=== PATIENT | male | born 1960 | race Two or more races ===

== ENCOUNTER 2018-06-11 18:57 | Emergency (ER) | payer MEDICAID ==
[~2018-06-11] VITALS: Ht 172.7 cm; Wt 101.0 kg
[~2018-06-11 18:57] MED LIST: ALLO100T PO; ASPI81TA52 PO; ATOR80TA PO; CARV6.252 PO; CYCL-1 PO; GLIP5TAB13 PO; INSU100I31 SQ; INSU100I8 SQ; LOSA50TA3 PO; PANT-47 PO; TICA90TA PO
[2018-06-11] MEDS ORDERED: LIDOcaine 1% 30ml preserv. free vial IJ ONE (21:10)
[2018-06-11] MEDS ORDERED: TETanus/Pertussis (Acell)/Diphther VAC/PF (Tdap-Adult) 0.5ml syringe IM ONE (21:10)
[2018-06-11] MEDS ORDERED: LIDOcaine 1% (10mg/ml)w/preservative injection 20ml MDV SQ ONE ×2 (21:10)
[2018-06-11 22:01] VITALS: BP 175/96
== END 2018-06-11 22:02 | disposition home or self-care (01) ==
LOC: ER 18:58
DX: S61.412A Laceration without foreign body of left hand, initial encounter (principal); I10 Essential (primary) hypertension; I25.10 Atherosclerotic heart disease of native coronary artery without angina pectoris; E78.00 Pure hypercholesterolemia, unspecified; I25.2 Old myocardial infarction; E11.9 Type 2 diabetes mellitus without complications; M10.9 Gout, unspecified; Z95.1 Presence of aortocoronary bypass graft; Z88.8 Allergy status to other drugs, medicaments and biological substances; Z79.82 Long term (current) use of aspirin; Z79.4 Long term (current) use of insulin; W45.8XXA Other foreign body or object entering through skin, initial encounter; Y93.89 Activity, other specified; Y92.89 Other specified places as the place of occurrence of the external cause; Y99.8 Other external cause status
CPT/HCPCS: 12001; 90471; 90715; 99283; J2001; J3490

== ENCOUNTER 2020-05-02 13:04 | Inpatient (IN) | payer MEDICAID ==
[~2020-05-02] VITALS: Ht 177.8 cm; Wt 96.0 kg
[2020-05-02] MEDS ORDERED: aspirin 81mg tab.chew PO ONE (13:35)
[2020-05-02] MEDS: nitroGLYCERIN 0.4mg SUBLingual tab SL PRN ×2 (13:49→13:59)
[2020-05-02 14:00] LABS: BASOPHILS % (AUTO) 0.6 % (0-1); EOSINOPHILS # (AUTO) 0.2 X10'3 (0-0.9); EOSINOPHILS % (AUTO) 3.3 % (0-6); HEMATOCRIT 42.4 % (42.0-52.0); HEMOGLOBIN 14.2 g/dl (14.0-17.9); LYMPHOCYTES # (AUTO) 1.6 X10'3 (1.1-4.8); LYMPHOCYTES % (AUTO) 25.1 % (21-51); MEAN CORPUSCULAR HEMOGLOBIN 27.9 PG (27.0-31.0); MEAN CORPUSCULAR HGB CONC 33.6 g/dL (33.0-36.5); MEAN CORPUSCULAR VOLUME 83.1 FL (78-98); MEAN PLATELET VOLUME 7.4 FL (7.4-10.4); MONOCYTES # (AUTO) 0.6 X10'3 (0-0.9); MONOCYTES % (AUTO) 9.2 % (2-12); NEUTROPHILS # (AUTO) 3.9 X10'3 (1.8-7.7); NEUTROPHILS % (AUTO) 61.8 % (42-75); PLATELET COUNT 219 X10'3 (140-440); RED CELL DISTRIBUTION WIDTH 14.6 % (11.5-14.5); WHITE BLOOD COUNT 6.4 X10'3 (4.5-11.0)
[2020-05-02 14:19] LABS: ALANINE AMINOTRANSFERASE 36 U/L (12-78); ALBUMIN 3.6 G/DL (3.4-5.0); ALKALINE PHOSPHATASE 93 IU/L (46-116); ANION GAP 8 (8-16); ASPARTATE AMINO TRANSFERASE 12 U/L (10-37); BILIRUBIN,TOTAL 0.8 MG/DL (0.1-1.0); BLOOD UREA NITROGEN 18 MG/DL (7-18); BUN/CREATININE RATIO 14.9 (5.4-32.0); CALCIUM 8.6 MG/DL (8.5-10.1); CHLORIDE 106 MMOL/L (99-107); CREATININE 1.21 MG/DL (0.60-1.10); GLUCOSE 167 MG/DL (70-104); POTASSIUM 4.2 MMOL/L (3.5-5.1); SODIUM 140 MMOL/L (135-145); TOTAL CARBON DIOXIDE 26.1 MMOL/L (24-32); TOTAL PROTEIN 7.3 G/DL (6.4-8.2); eGFR 61 ML/MIN
[2020-05-02] MEDS ORDERED: magnesium hydroxide 30ml (MOM) UD suspension PO PRN (15:25)
[2020-05-02] MEDS ORDERED: morphine 2 MG/ML inj. syringe IV PRN ×2 (15:25)
[2020-05-02] MEDS ORDERED: ondansetron/PF 4mg/2ml inj IV PRN (15:25)
[2020-05-02] MEDS ORDERED: acetaminophen 325mg tablet PO PRN (15:25)
[2020-05-02] MEDS ORDERED: mag hydrox/Alum hydrox/simeth 30ml oral suspension PO PRN (15:25)
[2020-05-02] MEDS ORDERED: nitroGLYCERIN 0.4mg/hour patch TD ONE (15:30)
[2020-05-02] MEDS ORDERED: ATOR40TA72 PO (15:47)
[2020-05-02] MEDS ORDERED: PANT40TA4 PO (15:47)
[2020-05-02] MEDS ORDERED: TICA90TA2 PO (15:47)
[2020-05-02] MEDS ORDERED: SEMA0.25 SQ (15:47)
[2020-05-02] MEDS ORDERED: ASPI-1397 PO (15:47)
[2020-05-02] MEDS ORDERED: NITR0.4T51 SL (15:47)
[2020-05-02] MEDS ORDERED: ZOLP5TAB8 PO (15:47)
[2020-05-02] MEDS ORDERED: CARV6.253 PO (15:47)
[2020-05-02] MEDS ORDERED: ALLO100T49 PO (15:49)
[2020-05-02] MEDS ORDERED: TICA90TA PO (15:49)
[2020-05-02] MEDS: normal saline 1000ml 1,000 ML IV SCH (16:02)
[2020-05-02] MEDS ORDERED: nitroGLYCERIN 0.4mg SUBLingual tab SL PRN (17:10)
--- NOTE | 2020-05-02 18:50 | NUR ---
Patient in room ED 10. I have received report from Kaylee MUKHERJEE and had the opportunity to ask questions and assume patient care.
--- NOTE | 2020-05-02 19:28 | NUR ---
Patient arrived on unit. equipment monitor phototypesetting applied, MRSA swab obtained and two RN skin check completed. Patient stable and has no chest pain at this time. Will continue to monitor closely.
--- NOTE | 2020-05-02 19:54 | NUR ---
DAUGHTER DOM BUSCH [phone]
[2020-05-02] MEDS ORDERED: heparin, porcine 5000 units/ml vial SQ SCH (20:00)
[2020-05-02] MEDS: ticagrelor 90mg tablet PO SCH (20:16)
[2020-05-02] MEDS: carvedilol 6.25mg tablet PO SCH (20:16)
[2020-05-02] MEDS: losartan 50mg tablet PO SCH (20:16)
[2020-05-02] MEDS: insulin glargine (Lantus) pen - multi-dose SQ SCH (20:40)
[2020-05-02 22:00] VITALS: BP 127/79
[2020-05-03] MEDS: normal saline 1000ml 1,000 ML IV SCH ×2 (01:24→11:24)
[2020-05-03 01:44] LABS: ANION GAP 7 (8-16); BLOOD UREA NITROGEN 17 MG/DL (7-18); BUN/CREATININE RATIO 17.3 (5.4-32.0); CALCIUM 8.3 MG/DL (8.5-10.1); CHLORIDE 107 MMOL/L (99-107); CREATININE 0.98 MG/DL (0.60-1.10); GLUCOSE 96 MG/DL (70-104); POTASSIUM 3.5 MMOL/L (3.5-5.1); SODIUM 139 MMOL/L (135-145); TOTAL CARBON DIOXIDE 25.3 MMOL/L (24-32); eGFR 78 ML/MIN
[2020-05-03 01:55] LABS: BASOPHILS % (AUTO) 0.6 % (0-1); EOSINOPHILS # (AUTO) 0.2 X10'3 (0-0.9); EOSINOPHILS % (AUTO) 3.5 % (0-6); HEMATOCRIT 37.3 % (42.0-52.0); HEMOGLOBIN 12.7 g/dl (14.0-17.9); LYMPHOCYTES # (AUTO) 1.9 X10'3 (1.1-4.8); MEAN CORPUSCULAR HEMOGLOBIN 28.5 PG (27.0-31.0); MEAN CORPUSCULAR HGB CONC 34.1 g/dL (33.0-36.5); MEAN CORPUSCULAR VOLUME 83.5 FL (78-98); MEAN PLATELET VOLUME 7.4 FL (7.4-10.4); MONOCYTES # (AUTO) 0.6 X10'3 (0-0.9); MONOCYTES % (AUTO) 8.7 % (2-12); NEUTROPHILS # (AUTO) 4.1 X10'3 (1.8-7.7); NEUTROPHILS % (AUTO) 60.2 % (42-75); PLATELET COUNT 184 X10'3 (140-440); RED BLOOD COUNT 4.46 X10'6 (4.70-6.10); WHITE BLOOD COUNT 6.9 X10'3 (4.5-11.0)
[2020-05-03 02:00] VITALS: BP 128/76
--- NOTE | 2020-05-03 06:03 | NUR ---
Problems reprioritized. Patient report given, questions answered & plan of care reviewed with Sharita MUKHERJEE.
--- NOTE | 2020-05-03 06:21 | NUR ---
Patient in room PCU 3021. I have received report from YAZ Hill and had the opportunity to ask questions and assume patient care. Patient awake in bed and in no acute distress.
[2020-05-03 07:00] VITALS: BP 149/77
[2020-05-03] MEDS: carvedilol 6.25mg tablet PO SCH (07:55)
[2020-05-03 07:58] VITALS: BP_SYST 149
[2020-05-03] MEDS: losartan 50mg tablet PO SCH (07:58)
[2020-05-03] MEDS: ticagrelor 90mg tablet PO SCH (07:58)
[2020-05-03] MEDS ORDERED: aspirin 81mg tablet.DR PO SCH (08:00)
[2020-05-03] MEDS ORDERED: atorvastatin 20mg tablet PO SCH (08:00)
[2020-05-03] MEDS ORDERED: pantoprazole 40mg Tablet.DR PO SCH (08:00)
[2020-05-03] MEDS ORDERED: glipizide 5mg tablet PO SCH (08:00)
[2020-05-03] MEDS: insulin glargine (Lantus) pen - multi-dose SQ SCH (08:05)
[2020-05-03] MEDS ORDERED: isosorbide mononitrate 30mg tab.SR.24H PO ONE (08:25)
[2020-05-03] MEDS ORDERED: allopurinol 100mg tablet PO SCH (08:30)
[2020-05-03] MEDS ORDERED: ISOS30TA6 PO (10:23)
--- NOTE | 2020-05-03 11:50 | NUR ---
Patient stable for discharge per MD orders. All discharge instructions reviewed and questions answered appropriately. Belongings collected and sent with patient. New prescriptions called in to [facility] on [address]. Patient will call for follow up with PCP and with Dr. Garcia. PIV discontinued and cannula intact. awake overnight monitor discontinued. Hospital armband cut off. Patient wheeled down to lobby and left via private vehicle.
[2020-05-04] MEDS ORDERED: isosorbide mononitrate 30mg tab.SR.24H PO SCH (08:00)
[2020-05-05] MEDS ORDERED: SEMAGLUTIDE 0.25 MG/0.2 ML SQ SCH (08:00)
== END 2020-05-03 11:48 | disposition home or self-care (01) | DRG 198 ==
LOC: ER 13:05 → OBSVTOIN 15:24 → ED HOLD 15:24 → PCU 3S 19:11
PROVIDERS: ADMIT Family Medicine; ATTEND Family Medicine
DX: I24.9 Acute ischemic heart disease, unspecified (principal); E11.9 Type 2 diabetes mellitus without complications; E78.00 Pure hypercholesterolemia, unspecified; E78.5 Hyperlipidemia, unspecified; I10 Essential (primary) hypertension; I25.10 Atherosclerotic heart disease of native coronary artery without angina pectoris; I25.2 Old myocardial infarction; Z95.5 Presence of coronary angioplasty implant and graft; M10.9 Gout, unspecified; Z79.899 Other long term (current) drug therapy
CPT/HCPCS: 36415; 71045; 80048; 80053; 82948; 83880; 84484; 85025; 87081; 93005; 93306; 99285; G0378; J1815; J7030

== ENCOUNTER 2020-07-16 11:55 | Emergency (ER) | payer MEDICAID ==
[~2020-07-16] VITALS: Ht 175.3 cm; Wt 94.0 kg
[~2020-07-16 11:55] MED LIST changes: -ALLO100T PO; +ALLO100T49 PO; +ASPI-1397 PO; -ASPI81TA52 PO; +ATOR40TA72 PO; -ATOR80TA PO; -CARV6.252 PO; +CARV6.253 PO; -CYCL-1 PO; -INSU100I8 SQ; +ISOS30TA6 PO; +NITR0.4T51 SL; -PANT-47 PO; +PANT40TA54 PO; +SEMA0.25 SQ; -TICA90TA PO; +TICA90TA2 PO
[2020-07-16] MEDS ORDERED: acetaminophen 325mg tablet PO STA (12:07)
[2020-07-16] MEDS ORDERED: normal saline 1000ML IV soln IV ONE ×2 (12:10→12:35)
[2020-07-16] MEDS ORDERED: aspirin 81mg tab.chew PO ONE (12:10)
[2020-07-16] MEDS ORDERED: dexamethasone sod phosphate 10mg/ml inj IV STA (12:32)
[2020-07-16] MEDS ORDERED: levoFLOXACIN-Levaquin 750MG/D5 150 ML IV ONE (12:35)
[2020-07-16 13:02] LABS: BASOPHILS % (AUTO) 0.2 % (0-1); EOSINOPHILS % (AUTO) 0.2 % (0-6); HEMATOCRIT 41.4 % (42.0-52.0); HEMOGLOBIN 13.9 g/dl (14.0-17.9); LYMPHOCYTES % (AUTO) 13.6 % (21-51); MEAN CORPUSCULAR HEMOGLOBIN 27.5 PG (27.0-31.0); MEAN CORPUSCULAR HGB CONC 33.6 g/dL (33.0-36.5); MEAN CORPUSCULAR VOLUME 81.8 FL (78-98); MONOCYTES # (AUTO) 0.6 X10'3 (0-0.9); MONOCYTES % (AUTO) 8.3 % (2-12); NEUTROPHILS # (AUTO) 5.7 X10'3 (1.8-7.7); NEUTROPHILS % (AUTO) 77.7 % (42-75); PLATELET COUNT 239 X10'3 (140-440); RED BLOOD COUNT 5.07 X10'6 (4.70-6.10); RED CELL DISTRIBUTION WIDTH 13.9 % (11.5-14.5); WHITE BLOOD COUNT 7.3 X10'3 (4.5-11.0)
[2020-07-16 13:14] LABS: D-DIMER 0.35 MG/L FEU (0-0.50)
[2020-07-16 13:18] LABS: ALANINE AMINOTRANSFERASE 41 U/L (12-78); ALBUMIN 3.1 G/DL (3.4-5.0); ALBUMIN/GLOBULIN RATIO 0.6 (1.1-1.5); ALKALINE PHOSPHATASE 110 IU/L (46-116); ANION GAP 12 (8-16); ASPARTATE AMINO TRANSFERASE 20 U/L (10-37); BILIRUBIN,TOTAL 0.7 MG/DL (0.1-1.0); BLOOD UREA NITROGEN 12 MG/DL (7-18); BUN/CREATININE RATIO 11.4 (5.4-32.0); CALCIUM 8.7 MG/DL (8.5-10.1); CHLORIDE 96 MMOL/L (99-107); CREATININE 1.05 MG/DL (0.60-1.10); GLUCOSE 133 MG/DL (70-104); SODIUM 134 MMOL/L (135-145); TOTAL CARBON DIOXIDE 26.2 MMOL/L (24-32); TOTAL PROTEIN 7.9 G/DL (6.4-8.2); eGFR 72 ML/MIN
[2020-07-16 13:59] LABS: CLARITY,URINE CLEAR (Clear); COLOR,URINE YELLOW (Yellow); GLUCOSE, URINE NEGATIVE (Neg); KETONES,URINE NEGATIVE (Neg); LEUKOCYTE ESTERASE ,URINE NEGATIVE (Neg); NITRITES, URINE NEGATIVE (Neg); OCCULT BLOOD,URINE NEGATIVE (Neg); PROTEIN,URINE TRACE mg/dl (Neg)
[2020-07-16 14:05] LABS: UA COLLECTION TYPE VOIDED
[2020-07-16 14:10] LABS: MUCUS STRANDS MANY /LPF (Neg); SQUAMOUS EPITHELIAL CELL,UR MODERATE /LPF (FEW); TRANSITIONAL EPI CELLS,URINE FEW /HPF
[2020-07-16 14:11] LABS: BACTERIA,URINE NONE SEEN /HPF (Neg); RBC,URINE 0-2 /HPF (0-2); RENAL CELLS, URINE MODERATE /HPF; WBC,URINE 0-4 /HPF (0-4)
[2020-07-16] MEDS ORDERED: DEXA4TAB67 PO (14:13)
[2020-07-16] MEDS ORDERED: LEVO750T46 PO (14:13)
[2020-07-16] MEDS ORDERED: ALBU6.7H9 INH (14:13)
--- NOTE | 2020-07-16 14:55 | NUR ---
STARTED IV AND GAVE MEDICATION PER PRIMARY RN REQUEST
--- NOTE | 2020-07-16 15:09 | NUR ---
SPOKE TO ROSA MARIA FERGUSON: PATIENT TO RECEIVE 2 LITERS TOTAL OF NS
--- NOTE | 2020-07-16 15:14 | NUR ---
COVID PRECAUTIONS MAINTAINED
[2020-07-16 16:19] VITALS: BP 138/89
== END 2020-07-16 16:20 | disposition home or self-care (01) ==
LOC: ER 11:56
DX: U07.1 COVID-19 (principal); J12.89 Other viral pneumonia; I25.10 Atherosclerotic heart disease of native coronary artery without angina pectoris; E78.00 Pure hypercholesterolemia, unspecified; I10 Essential (primary) hypertension; I21.9 Acute myocardial infarction, unspecified; E11.9 Type 2 diabetes mellitus without complications; M10.9 Gout, unspecified; Z98.890 Other specified postprocedural states
CPT/HCPCS: 36415; 71045; 80053; 81001; 83605; 83880; 84145; 84484; 85025; 85379; 85610; 87040; 93005; 96365; 96366; 96375; 99285; J1100; J1956; J7030

== ENCOUNTER 2020-07-21 11:10 | Emergency (ER) | payer MEDICAID ==
[~2020-07-21] VITALS: Ht 177.8 cm; Wt 95.5 kg
[~2020-07-21 11:10] MED LIST changes: +ALBU6.7H9 INH; +DEXA4TAB67 PO; +LEVO750T46 PO
[2020-07-21 12:29] LABS: BASOPHILS % (AUTO) 0.4 % (0-1); EOSINOPHILS # (AUTO) 0.1 X10'3 (0-0.9); EOSINOPHILS % (AUTO) 0.8 % (0-6); HEMOGLOBIN 14.3 g/dl (14.0-17.9); LYMPHOCYTES # (AUTO) 0.9 X10'3 (1.1-4.8); MEAN CORPUSCULAR HEMOGLOBIN 27.6 PG (27.0-31.0); MEAN CORPUSCULAR HGB CONC 33.4 g/dL (33.0-36.5); MEAN CORPUSCULAR VOLUME 82.7 FL (78-98); MONOCYTES # (AUTO) 0.9 X10'3 (0-0.9); MONOCYTES % (AUTO) 12.8 % (2-12); NEUTROPHILS # (AUTO) 5.3 X10'3 (1.8-7.7); PLATELET COUNT 391 X10'3 (140-440); WHITE BLOOD COUNT 7.2 X10'3 (4.5-11.0)
[2020-07-21 12:41] LABS: ALANINE AMINOTRANSFERASE 23 U/L (12-78); ALBUMIN 2.8 G/DL (3.4-5.0); ALBUMIN/GLOBULIN RATIO 0.6 (1.1-1.5); ALKALINE PHOSPHATASE 92 IU/L (46-116); ANION GAP 11 (8-16); ASPARTATE AMINO TRANSFERASE 8 U/L (10-37); BILIRUBIN,TOTAL 0.8 MG/DL (0.1-1.0); BLOOD UREA NITROGEN 14 MG/DL (7-18); CALCIUM 8.7 MG/DL (8.5-10.1); CHLORIDE 98 MMOL/L (99-107); CREATININE 1.08 MG/DL (0.60-1.10); GLUCOSE 322 MG/DL (70-104); POTASSIUM 3.7 MMOL/L (3.5-5.1); SODIUM 132 MMOL/L (135-145); TOTAL CARBON DIOXIDE 23.4 MMOL/L (24-32); TOTAL PROTEIN 7.3 G/DL (6.4-8.2); eGFR 70 ML/MIN
[2020-07-21 12:42] LABS: CLARITY,URINE CLEAR (Clear); COLOR,URINE YELLOW (Yellow); GLUCOSE, URINE 500 mg/dl (Neg); KETONES,URINE NEGATIVE (Neg); LEUKOCYTE ESTERASE ,URINE NEGATIVE (Neg); NITRITES, URINE NEGATIVE (Neg); OCCULT BLOOD,URINE NEGATIVE (Neg); PROTEIN,URINE NEGATIVE (Neg)
[2020-07-21 12:46] LABS: UA COLLECTION TYPE URINAL
[2020-07-21 12:50] LABS: ETHANOL < 0.010 GM/DL (0.0-0.010)
[2020-07-21 12:54] LABS: URINE AMPHETAMINE SCREEN NEGATIVE (Neg); URINE BARBITUATE SCREEN NEGATIVE (Neg); URINE BENZODIAZEPINES SCREEN NEGATIVE (Neg); URINE CANNABINOID SCREEN NEGATIVE (Neg); URINE COCAINE SCREEN NEGATIVE (Neg); URINE METHADONE SCREEN NEGATIVE (Neg); URINE OPIATE SCREEN NEGATIVE (Neg); URINE PHENCYCLIDINE SCREEN NEGATIVE (Neg)
[2020-07-21] MEDS ORDERED: acetaminophen 325mg tablet PO ONE (13:55)
--- NOTE | 2020-07-21 15:10 | NUR ---
Phoned patient's family members to have his spouse come to the ED for the mental health evaluation with [facility]. Pt's spouse is heading to work but his daughter is going to come to the ED to assist with the evaluation and translation.
--- NOTE | 2020-07-21 16:09 | NUR ---
[facility] has been in to speak with the patient and is daughter. Pt is pending disposition to home.
[2020-07-21] MEDS ORDERED: ZOLP5TAB8 PO ×2 (16:55→16:58)
[2020-07-21 17:12] VITALS: BP 124/79
== END 2020-07-21 17:15 | disposition home or self-care (01) ==
LOC: ER 11:10
DX: F32.9 Major depressive disorder, single episode, unspecified (principal); F41.9 Anxiety disorder, unspecified; G47.00 Insomnia, unspecified; R45.851 Suicidal ideations; I25.10 Atherosclerotic heart disease of native coronary artery without angina pectoris; E78.00 Pure hypercholesterolemia, unspecified; I10 Essential (primary) hypertension; I25.2 Old myocardial infarction; E11.9 Type 2 diabetes mellitus without complications; Z98.61 Coronary angioplasty status; Z88.8 Allergy status to other drugs, medicaments and biological substances; Z79.82 Long term (current) use of aspirin; Z79.4 Long term (current) use of insulin; Z79.899 Other long term (current) drug therapy
CPT/HCPCS: 36415; 80053; 80305; 80320; 81003; 84443; 85025; 99283; 99284

== ENCOUNTER 2022-10-14 22:11 | Emergency (ER) | payer MEDICAID ==
[~2022-10-14] VITALS: Ht 175.3 cm; Wt 104.5 kg
[~2022-10-14 22:11] MED LIST changes: +ALBU6.7H14 INH; -ALBU6.7H9 INH; -ISOS30TA6 PO; +ISOS30TA84 PO; -LEVO750T46 PO
[2022-10-14 22:38] LABS: BASOPHILS # (AUTO) 0.1 X10'3 (0-0.2); BASOPHILS % (AUTO) 1.2 % (0-1); EOSINOPHILS # (AUTO) 0.2 X10'3 (0-0.9); EOSINOPHILS % (AUTO) 2.7 % (0-6); HEMATOCRIT 42.2 % (42.0-52.0); HEMOGLOBIN 14.6 g/dl (14.0-17.9); LYMPHOCYTES # (AUTO) 2.7 X10'3 (1.1-4.8); LYMPHOCYTES % (AUTO) 32.3 % (21-51); MEAN CORPUSCULAR HEMOGLOBIN 27.6 PG (27.0-31.0); MEAN CORPUSCULAR HGB CONC 34.6 g/dL (33.0-36.5); MEAN CORPUSCULAR VOLUME 79.9 FL (78-98); MEAN PLATELET VOLUME 7.1 FL (7.4-10.4); MONOCYTES # (AUTO) 0.8 X10'3 (0-0.9); MONOCYTES % (AUTO) 9.4 % (2-12); NEUTROPHILS # (AUTO) 4.6 X10'3 (1.8-7.7); NEUTROPHILS % (AUTO) 54.4 % (42-75); PLATELET COUNT 219 X10'3 (140-440); RED BLOOD COUNT 5.28 X10'6 (4.70-6.10); RED CELL DISTRIBUTION WIDTH 14.1 % (11.5-14.5); WHITE BLOOD COUNT 8.5 X10'3 (4.5-11.0)
[2022-10-14 22:51] LABS: ALANINE AMINOTRANSFERASE 25 U/L (12-78); ALBUMIN 3.6 G/DL (3.4-5.0); ALKALINE PHOSPHATASE 85 IU/L (46-116); ANION GAP 8 (8-16); ASPARTATE AMINO TRANSFERASE 10 U/L (10-37); BILIRUBIN,TOTAL 0.6 MG/DL (0.1-1.0); BLOOD UREA NITROGEN 17 MG/DL (7-18); BUN/CREATININE RATIO 13.7 (5.4-32.0); CALCIUM 8.8 MG/DL (8.5-10.1); CHLORIDE 102 MMOL/L (99-107); CREATININE 1.24 MG/DL (0.60-1.10); GLUCOSE 133 MG/DL (70-104); POTASSIUM 3.5 MMOL/L (3.5-5.1); SODIUM 138 MMOL/L (135-145); TOTAL CARBON DIOXIDE 27.9 MMOL/L (24-32); TOTAL PROTEIN 7.2 G/DL (6.4-8.2); eGFR 59 ML/MIN
[2022-10-14] MEDS ORDERED: ondansetron 4mg rapidly disintigrating tab PO ONE (23:25)
[2022-10-14 23:57] VITALS: BP 161/97
== END 2022-10-14 23:59 | disposition home or self-care (01) ==
LOC: ER 22:12
DX: E87.8 Other disorders of electrolyte and fluid balance, not elsewhere classified (principal); I10 Essential (primary) hypertension; R51.9 Headache, unspecified; H53.8 Other visual disturbances; R11.0 Nausea; I25.10 Atherosclerotic heart disease of native coronary artery without angina pectoris; E78.00 Pure hypercholesterolemia, unspecified; I25.2 Old myocardial infarction; E11.9 Type 2 diabetes mellitus without complications; M10.9 Gout, unspecified; Z98.890 Other specified postprocedural states; Z88.8 Allergy status to other drugs, medicaments and biological substances; Z79.82 Long term (current) use of aspirin; Z79.4 Long term (current) use of insulin; Z79.899 Other long term (current) drug therapy
CPT/HCPCS: 36415; 71045; 80053; 83880; 84484; 85025; 93005; 99285

== ENCOUNTER 2022-10-29 13:07 | Outpatient (CLI) | payer MEDICAID | END 2022-10-29 23:59 | disposition home or self-care (01) | LOC: RAD 13:07 | PROVIDERS: ATTEND Family Medicine | DX: J18.9 Pneumonia, unspecified organism (principal) | CPT/HCPCS: 71046 ==

== ENCOUNTER 2023-01-09 21:00 | Emergency (ER) | payer MEDICAID ==
[~2023-01-09] VITALS: Ht 172.7 cm; Wt 102.0 kg
[2023-01-09 21:08] VITALS: BP 146/82
== END 2023-01-09 22:16 | disposition home or self-care (01) ==
LOC: ER 21:02
DX: M79.662 Pain in left lower leg (principal); I11.9 Hypertensive heart disease without heart failure; E78.00 Pure hypercholesterolemia, unspecified; E11.9 Type 2 diabetes mellitus without complications; Z88.8 Allergy status to other drugs, medicaments and biological substances; Z88.2 Allergy status to sulfonamides; Z79.899 Other long term (current) drug therapy; Z79.1 Long term (current) use of non-steroidal anti-inflammatories (NSAID); Z79.2 Long term (current) use of antibiotics; Z79.84 Long term (current) use of oral hypoglycemic drugs; W22.8XXA Striking against or struck by other objects, initial encounter; Y93.89 Activity, other specified; Y92.89 Other specified places as the place of occurrence of the external cause; Y99.8 Other external cause status
CPT/HCPCS: 73590; 99283

== ENCOUNTER 2023-11-30 08:02 | Outpatient (CLI) | payer SELFPAY ==
[~2023-11-30 08:02] MED LIST changes: -GLIP5TAB13 PO; +GLIP5TAB23 PO; +LOSA-416 PO; -LOSA50TA3 PO
== END 2023-11-30 23:59 | disposition home or self-care (01) ==
LOC: VAS 08:02
DX: Z13.6 Encounter for screening for cardiovascular disorders (principal)

== ENCOUNTER 2025-02-15 17:51 | Inpatient (IN) | payer MEDICAID ==
[~2025-02-15] VITALS: Ht 177.8 cm; Wt 109.1 kg
[~2025-02-15 17:51] MED LIST changes: +SULF1TAB49 PO
--- NOTE | 2025-02-15 18:26 | Physician Documentation ---
History of Present Illness ~ Chief Complaint: Abscess Stated Complaint: RECHECK ABSCESS Time Seen by MD: 18:10 Primary Medical Doctor: DARWIN REEVES This is a 64-year-old male who presents with redness, pain and swelling to his left breast. Patient was seen here previously for an abscess to the lateral aspect of his left breast and returns today for increased redness and swelling to the medial aspect. Patient is currently on Bactrim for this concern. Tetanus Within 5 Years: No Medication Reconciliation Allergies: Coded Allergies: lisinopril (Verified Allergy, Intermediate, gave him gout, 07/21/20) semaglutide (Verified Allergy, Intermediate, DIARRHEA/CARBAJAL, 10/14/22) Scheduled Albuterol Sulfate (Proventil Hfa), 2 PUFFS INH Q4H Allopurinol (Allopurinol), 1 TAB PO DAILY, (Reported) Aspirin (Aspirin EC), 1 TAB PO DAILY, (Reported) Atorvastatin Calcium (Atorvastatin Calcium), 1 TAB PO DAILY, (Reported) Carvedilol (Carvedilol), 1 TAB PO BID, (Reported) Dexamethasone (Decadron), 1 TAB PO Q12H Glipizide (Glipizide), 1 TAB PO DAILY, (Reported) Insulin Glargine,Hum.rec.anlog (Basaglar Kwikpen U-100), 34 UNITS SQ BID, (Reported) Isosorbide Mononitrate (Isosorbide Mononitrate Er), 30 MG PO DAILY Losartan* (Cozaar*), 1 TAB PO BID, (Reported) Pantoprazole Sodium (Pantoprazole Sodium), 1 TAB PO DAILY, (Reported) Semaglutide (Ozempic), 0.5 MG SQ SATURDAYS, (Reported) Sulfamethoxazole/Trimethoprim (Bactrim Ds Tablet), 1 TAB PO Q12H Ticagrelor (Brilinta), 1 TAB PO BID, (Reported) Scheduled PRN Nitroglycerin SL* (Nitrostat SL*), 1 TAB SL Q5MIN PRN for Chest pain Q5min PRNx3-call MD, (Reported) Past Medical History Past Medical History: Coronary Artery Disease, High Cholesterol, Hypertension, Myocardial Infarction, Diabetes, Gout Past Surgical History: angioplasty Other Past Surgical History: Cardiac Stents Alcohol Use: Rarely Drug Use: none Lives with: Family Lives In: Home Review of Systems ROS Pain, erythema, and swelling to skin of left breast as stated above in the HPI, otherwise all systems are reviewed and negative. Physical Exam Vital Signs: Temperature: 98.4, Source: Temporal, Heart Rate: 86, Respiratory Rate: 18, BP: 151/79, Pulse Oximetry: 97, Weight: 109.090 Oxygen Flow Rate: 0 Physical Exam VITALS: Reviewed and as above. GENERAL: Alert, nontoxic appearing, no apparent distress. RESPIRATORY: No increased work of breathing, no respiratory distress, speaking in full clear sentences, lung sounds clear in all guzman CV: Regular rate and rhythm no murmur SKIN: Skin of left breast erythematous with swelling and induration and area of possible fluctuance, very tender to palpation, left aspect of breast incision wound with purulent drainage Procedures I & D Procedure #1: Site: Medial aspect of left breast (8 o'clock position) Anesthesia: Lidocaine w/ Epi Volume Anesthetic (mls): 4 Blade Size: 11 Prep/Supplies: betadine prep, drapes applied, dressing applied, packing placed Incision: mass incised, pus drained, blood drained Tolerated Procedure Well?: yes, no complications Procedure Note The area was probed and explored and loculations broken up using the curved forceps with a large amount of purulent material drained Approximately 30 cm quarter-inch packing placed I & D Procedure #2: Site: Inferior aspect of left breast (6 o'clock position) Volume Anesthetic (mls): 3 Blade Size: 11 Prep/Supplies: betadine prep, drapes applied, dressing applied Incision: mass incised, pus drained, blood drained Tolerated Procedure Well?: yes, no complications Procedure Note The area was probed with curved forceps and loculations broken up with a small amount of purulent material expressed I & D Procedure #3: Site: Lateral aspect Volume Anesthetic (mls): 2 Prep/Supplies: betadine prep, packing placed Incision: mass incised, blood drained Tolerated Procedure Well?: yes, no complications Procedure Note Previously incised site was anesthetized at incision site and using a curved forceps reopen to allow drainage of purulent material, area was then packed with approximately 15 cm of quarter-inch plain packing material Progress Progress Note I spoke with hospitalist resident Dr. Wiseman who kindly accepts patient for admission Results/Orders Results/Orders Orders - ADAM,DANIELA W ASSOCIATE MEDIA PLANNER Us Soft Tissue Mass (02/15/25 18:10) Laceration/I&D Tray Set Up (02/15/25 20:02) Page Hospitalist (02/15/25 20:09) Fill Out Med Reconciliation (02/15/25 20:09) Completed Orders - DANIELA MEDINA Cbc/Diff (02/15/25 18:10) BMP (02/15/25 18:10) Us Soft Tissue Mass (02/15/25 18:10) Tetanus/Pertuss/Diph Acell/Pf (Boostrix (02/15/25 20:05) Normal Saline 1000ml (Sodium Chloride 10 (02/15/25 20:05) Lidocaine 1% W/Epi 1:100,000 (Xylocaine (02/15/25 20:05) Vancomycin*Pharmacy To Dose* (Vancomycin (02/15/25 20:10) Vancomycin/Ns 1 Gm Add-Ararat (Vancomyc (02/15/25 20:30) Medications Received in ER Medications (Trade) Dose Ordered Sig/Manpreet Route PRN Reason Start Time Stop Time Status Last Admin Dose Admin (Boostrix vaccine syringe) 0.5 ml ONCE ONCE IMVAC 02/15/25 20:05 02/15/25 20:06 DC 02/15/25 21:51 0.5 ML (sodium chloride 1000ml IV soln) 1,000 ml ONCE ONCE IVB 02/15/25 20:05 02/15/25 20:06 DC 02/15/25 20:44 1,000 ML Vancomycin HCl 250 ml @ 166 mls/hr ONCE ONCE IV 02/15/25 20:30 02/15/25 22:00 DC 02/15/25 20:43 166 MLS/HR Sodium Chloride 1,000 ml @ 100 mls/hr Q10H IV 02/15/25 20:50 02/15/25 21:47 100 MLS/HR Vital Signs 02/15/25 17:55 Temp 98.4 Pulse 86 Resp 18 B/P (MAP) 151/79 Pulse Ox 97 O2 Flow Rate 0 Laboratory Tests Test 02/15/25 18:38 White Blood Count 10.1 Red Blood Count 4.91 Hemoglobin 13.4 L Hematocrit 40.1 L Mean Corpuscular Volume 81.7 Mean Corpuscular Hemoglobin 27.3 Mean Corpuscular Hemoglobin Concent 33.5 Red Cell Distribution Width 14.6 H Platelet Count 281 Mean Platelet Volume 7.3 L Neutrophils (%) (Auto) 63.3 Lymphocytes (%) (Auto) 22.3 Monocytes (%) (Auto) 12.3 H Eosinophils (%) (Auto) 1.6 Basophils (%) (Auto) 0.5 Neutrophils # (Auto) 6.4 Lymphocytes # (Auto) 2.3 Monocytes # (Auto) 1.2 H Eosinophils # (Auto) 0.2 Basophils # (Auto) 0.0 CBC Comment Sodium Level 140 Potassium Level 4.4 Chloride Level 104 Carbon Dioxide Level 28.6 Anion Gap 7 L Blood Urea Nitrogen 26 H Creatinine 1.87 H Estimated GFR/1.73 m2 36 BUN/Creatinine Ratio 13.9 Glucose Level 119 H Calcium Level 8.5 Albumin 3.2 L Procalcitonin < 0.05 Chemistry Comments EKG/XRAY/CT/US/VASC/MRI Ultrasound : Impression Clinical History Swelling and erythema to left breast Comparison ultrasound of breast on 02/12/2025, 11 images. Technique: Multiple grayscale, Doppler and color Doppler ultrasound images of the left breast were obtained and submitted for review. Without Contrast KIRSTEN BUSCH, [id number] FINDINGS:/IMPRESSION: Edematous changes in the left breast soft tissues with focal fluid collections and debris. No obvious mass identified. This report was electronically signed by Roberto Valencia MD on 02/15/2025 10:09:04 PM. Electronically Signed by:ROBERTO VALENCIA MD Date & Time: 02/15/252211 Dictated by: ROBERTO VALENCIA MD Dictation date and time: 02/15/252211 Medical Decision Making Findings This 64-year-old male presents back to the emergency department for worsening pain and swelling to his left breast, formal ultrasound of the area demonstrated abscess formation without evidence of gas to suggest gangrene or necrotizing fasciitis, patient previously had incision and drainage of lateral aspect of left breast for abscess and was placed on Bactrim DS, as patient was previously on Augmentin for the similar complaint he has failed outpatient antibiotics and will we will require inpatient admission for IV antibiotics. Patient was hemodynamically stable without evidence of sepsis and remainder of physical exam was otherwise benign. Lab work did demonstrate evidence of clinical dehydration, given patient reported working in the heat with decreased fluid intake today this most likely explains cause of dehydration. Previously incised abscess was reopened in further purulent material drained hand medial aspect abscess was incised and drained with significant drainage of purulent material. Pain management, IV antibiotics and IV rehydration initiated. Hospitalist team contacted and kindly accepted patient for admission. Differential Dx:Considerations: Include: Bacteremia, Erysipelas, Gas gangrene, Septicemia, Other (Necrotizing fasciitis) Departure Disposition: ADMITTED INPATIENT Admitted to Inpatient Unit: to hospitalist Impression: Primary Impression: Abscess Additional Impression: Dehydration Referrals: NO PRIMARY CARE PROVIDER (PCP) Education Educated: Patient, Family Educated regarding: diagnosis, treatment, prognosis, need for follow up Signature Scribe Signature: No scribe Attestation: The note accurately reflects work and decisions made by me.CHRISTOPHER Burk 02/16/25 02:41 DANIELA MEDINA February 15, 2025 18:26
[2025-02-15 18:59] LABS: ALBUMIN 3.2 G/DL (3.4-5.0); ANION GAP 7 (8-16); BASOPHILS % (AUTO) 0.5 % (0-1); BLOOD UREA NITROGEN 26 MG/DL (7-18); BUN/CREATININE RATIO 13.9 (10.0-20.0); CALCIUM 8.5 MG/DL (8.5-10.1); CHLORIDE 104 MMOL/L (99-107); CREATININE 1.87 MG/DL (0.60-1.10); EOSINOPHILS # (AUTO) 0.2 X10'3 (0-0.9); EOSINOPHILS % (AUTO) 1.6 % (0-6); GLUCOSE 119 MG/DL (70-104); HEMATOCRIT 40.1 % (42.0-52.0); HEMOGLOBIN 13.4 g/dl (14.0-17.9); LYMPHOCYTES # (AUTO) 2.3 X10'3 (1.1-4.8); LYMPHOCYTES % (AUTO) 22.3 % (21-51); MEAN CORPUSCULAR HEMOGLOBIN 27.3 PG (27.0-31.0); MEAN CORPUSCULAR HGB CONC 33.5 g/dL (33.0-36.5); MEAN CORPUSCULAR VOLUME 81.7 FL (78-98); MEAN PLATELET VOLUME 7.3 FL (7.4-10.4); MONOCYTES # (AUTO) 1.2 X10'3 (0-0.9); MONOCYTES % (AUTO) 12.3 % (2-12); NEUTROPHILS # (AUTO) 6.4 X10'3 (1.8-7.7); NEUTROPHILS % (AUTO) 63.3 % (42-75); PLATELET COUNT 281 X10'3 (140-440); POTASSIUM 4.4 MMOL/L (3.5-5.1); RED BLOOD COUNT 4.91 X10'6 (4.70-6.10); RED CELL DISTRIBUTION WIDTH 14.6 % (11.5-14.5); SODIUM 140 MMOL/L (135-145); TOTAL CARBON DIOXIDE 28.6 MMOL/L (24-32); WHITE BLOOD COUNT 10.1 X10'3 (4.5-11.0); eCRCL 41 ML/MIN; eGFR 36 ML/MIN
[2025-02-15] MEDS: vancomycin/NS 1 GM ADD-VANTAGE 250 ML X 1 DOSE IV ONE (20:43)
[2025-02-15] MEDS: normal saline 1000ML IV soln IVB ONE (20:44)
[2025-02-15] MEDS: LIDOcaine 1% W/epiNEPHrine 1:100,000 20ml vial SQ ONE (20:48)
[2025-02-15] MEDS ORDERED: potassium Cl 20 mEq SR tablet PO PRN ×2 (20:50)
[2025-02-15] MEDS ORDERED: acetaminophen 325mg tablet PO PRN (20:50)
[2025-02-15] MEDS ORDERED: magnesium sulf-water 4G/100mL 100 ML IV PRN (20:50)
[2025-02-15] MEDS ORDERED: mag hydrox/Alum hydrox/simeth 30ml oral suspension PO PRN (20:50)
[2025-02-15] MEDS ORDERED: magnesium sulf-water 2g/50mL 50 ML IV PRN (20:50)
[2025-02-15] MEDS ORDERED: potassium Cl 40MEQ/1/2NS 520ml 520 ML IV PRN (20:50)
[2025-02-15] MEDS ORDERED: ondansetron/PF 4mg/2ml inj IV PRN (20:50)
[2025-02-15] MEDS ORDERED: magnesium hydroxide 30ml (MOM) UD suspension PO PRN (20:50)
[2025-02-15] MEDS ORDERED: magnesium Cl slow-release 64mg tablet PO PRN (20:50)
[2025-02-15] MEDS: morphine 4 MG/ML inj SYRINge IV ONE (21:44)
[2025-02-15] MEDS: normal saline 1000ml 1,000 ML IV SCH (21:47)
[2025-02-15] MEDS: TETanus/Pertussis (Acell)/Diphther VAC/PF (Tdap-Adult) 0.5ml syringe IMVAC ONE (21:51)
--- NOTE | 2025-02-15 22:10 | HISTORY AND PHYSICAL-Residence ---
History & Physical Providers to CC Resident Creating Document: LUKASZ WISEMAN, RES ~ History of Present Illness Primary Medical Doctor: DARWIN LEE Reason for Admit\Complaint: Left breast abscess History of Present Illness History taken by using translation services. 64 years old male with past medical history of diabetes, hypertension, coronary artery disease presented to the ED with chief complaint of worsening left breast pain, swelling and erythema. He reports that he 1st noticed the swelling, pain and redness in his left breast 10 days ago for which he has presented to the ER twice and has tried 2 antibiotics-Augmentin and Bactrim DS (3rd day today) without any improvement. He states that the pains swelling and erythema has been progressively getting worse day by day. The patient also endorses associated fever and chills with the last 10 days. He rates the pain in his left breast to be six on 10 without palpation and states that if he touches the breast it increases to 10 on a scale of 10. Patient denied any other concerns or complaints at the moment. He denies any headache, nausea, vomiting, shortness of breaths, palpitations, abdominal pain. Allergies: Coded Allergies: lisinopril (Verified Allergy, Intermediate, gave him gout, 07/21/20) semaglutide (Verified Allergy, Intermediate, DIARRHEA/CARBAJAL, 10/14/22) Home Medications Home Medications Active Bactrim Ds Tablet (Sulfamethoxazole/Trimethoprim) 800 Mg-160 Mg Tablet 1 Tab PO Q12H 10 Days Decadron (Dexamethasone) 4 Mg Tablet 1 Tab PO Q12H 3 Days Proventil Hfa (Albuterol Sulfate) 6.7 Gm Hfa.aer.ad 2 Puffs INH Q4H Isosorbide Mononitrate Er (Isosorbide Mononitrate) 30 Mg Tab.er.24h 30 Mg PO DAILY 30 Days Reported Allopurinol 100 Mg Tablet 1 Tab PO DAILY 30 Days Ozempic (Semaglutide) 0.25 Mg/0.2 Ml Pen.injctr 0.5 Mg SQ SATURDAYS Aspirin EC (Aspirin) 81 Mg Tablet.dr 1 Tab PO DAILY Brilinta (Ticagrelor) 90 Mg Tablet 1 Tab PO BID Atorvastatin Calcium 40 Mg Tablet 1 Tab PO DAILY Carvedilol 6.25 Mg Tablet 1 Tab PO BID Nitrostat SL* (Nitroglycerin) 0.4 Mg Tablet 1 Tab SL Q5MIN PRN Pantoprazole Sodium 40 Mg Tablet. 1 Tab PO DAILY Basaglar Kwikpen U-100 (Insulin Glargine,Hum.rec.anlog) 100 Unit/1 Ml Insuln.pen 34 Units SQ BID Glipizide 5 Mg Tablet 1 Tab PO DAILY 30 Days Cozaar* (Losartan Potassium) 50 Mg Tablet 1 Tab PO BID 30 Days Past Medical History Past Medical History Hypertension, diabetes mellitus, coronary artery disease status post stenting Past Surgical History Surgical History Comment Cataracts Incision and drainage of breast abscess (three days ago) Past Social History Social History Comment Denies smoking . Occasional alcohol. Denied any recreational drug use. Lives at home with family. 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 Exam Vitals: Vital Signs Date Time Temp Pulse Resp B/P (MAP) Pulse Ox O2 Delivery O2 Flow Rate FiO2 02/15/25 17:55 98.4 86 18 151/79 97 0 General: General: Awake and Alert, in moderate distress. HEENT: Conjunctiva pink, Sclera clear, Mucus Membranes moist. Neck: Supple without masses and tenderness. Resp: Unlabored. Lungs clear to auscultation bilaterally. Heart: Regular Rate and rhythm, normal S1 and S2 without murmur, rub or gallop. Abdomen: Soft and non tender no organomegaly Extremities: No cyanosis,clubbing or edema. Skin: Significant erythema noted around the left breast with increased warmth when compared to the right breast. There is five X five cm induration below the left nipple. Tender on palpation. Neurology: No focal motor or sensory deficits. Diagnostic Data Last Recorded Lab Results: 02/15/25183702/15/251837 Advance Care Planning Advanced Care planning: Add on additional 30 min Additional Plan Left breast abscess Failed outpatient antibiotic therapy-Augmentin, Bactrim DS. Ultrasound of the left breast from 02/12/2025 shows area of swelling in the retro areolar region of the left breast with a complex fluid collection measuring 3.9 X 2.8 X 2.5 cm. Repeat ultrasound of the breast done today. Awaiting report.. Patient is planned to undergo incision and drainage in the ER today. Started the patient on IV vancomycin and IV ceftriaxone. We will follow up with the blood cultures. We will consult Wound Care. Follow up with HbA1c. ISAAC ISAAC most likely secondary to acute tubular necrosis. Started the patient on IV fluid resuscitation. Continue NS at 100 cc/hour. Continue to monitor renal function test closely. Follow up with the urine studies. Diabetes mellitus Follow up with the A1c. We will start the patient on hyperglycemia/hypoglycemia protocol. 75 g carb controlled diet. Hypotension Vitals currently stable. Awaiting med reconciliation. Restart patient's home medications once med reconciliation is done. Continue to monitor vitals closely. History of coronary artery disease Awaiting med reconciliation. Follow up with A1c and lipid panel. CODE STATUS: Full code DVT prophylaxis: Heparin 5000 units subQ b.i.d. GI prophylaxis: None Diet: 75 g carb controlled diet Disposition: Admitting the patient in the hospital for management of left breast abscess which failed outpatient antibiotic treatment. Lukasz Wiseman MD Internal Medicine Resident, PGY-2 Date of Service: February 15, 2025 Billing Provider: SILVANA SIERRA MD,LUKASZ CRUZ, RES February 15, 2025 22:10
--- NOTE | 2025-02-15 22:12 | RADIOLOGY REPORT ---
Clinical History Swelling and erythema to left breast Comparison ultrasound of breast on 02/12/2025, 11 images. Technique: Multiple grayscale, Doppler and color Doppler ultrasound images of the left breast were ob tained and submitted for review. Without Contrast KIRSTEN BUSCH, [id number] FINDINGS:/IMPRESSION: Edematous changes in the left breast soft tissues with focal fluid collections and debris. No obvious mass identified. This report was electronically signed by Charles Schneider MD on 02/15/2025 10:09:04 PM.
[2025-02-15] MEDS: CefTRIAXone/D5W-Rocephin 1gm 50 ML IV SCH (23:16)
--- NOTE | 2025-02-15 23:56 | RADIOLOGY REPORT ---
Clinical History ISAAC Comparison None Technique: Multiple grayscale, Doppler and color Doppler ultrasound images of the kidneys and bladder were obtained and submitted for review. Without Contrast JO-ANN KIRSTEN, [id number] FINDINGS: RIGHT Kidney: Size: normal. Shape: normal. Echogenicity: normal. Collecting system: normal. Masses: none. Calcifications: None. LEFT Kidney: Size: normal. Shape: normal. Echogenicity: normal. Collecting system: normal. Masses: none. Calcifications: None. Bladder: Wall thickness: normal. Volume: within normal limits. Ureteral jets: Right: not seen. Left: present. IMPRESSION: Normal kidneys. No hydronephrosis or nephrolithiasis. Unremarkable bladder. This report was electronically signed by Charles Schneider MD on 02/15/2025 11:53:12 PM.
[2025-02-16] MEDS ORDERED: morphine 2 MG/ML inj. syringe IV PRN (00:05)
[2025-02-16] MEDS: vancomycin/NS 1 GM ADD-VANTAGE 250 ML X 1 DOSE IV ONE (00:11)
[2025-02-16 01:45] VITALS: BP 174/94; PULSE 79; RESP 18; TEMP 98.1; O2SAT 99
[2025-02-16] MEDS: losartan 50mg tablet PO ONE (02:50)
[2025-02-16 06:00] VITALS: BP 138/75; PULSE 77; RESP 16; TEMP 98.9; O2SAT 97
[2025-02-16 07:25] LABS: BASOPHILS % (AUTO) 0.5 % (0-1); EOSINOPHILS # (AUTO) 0.2 X10'3 (0-0.9); EOSINOPHILS % (AUTO) 2.6 % (0-6); HEMATOCRIT 37.8 % (42.0-52.0); HEMOGLOBIN 12.5 g/dl (14.0-17.9); LYMPHOCYTES # (AUTO) 1.7 X10'3 (1.1-4.8); LYMPHOCYTES % (AUTO) 19.9 % (21-51); MEAN CORPUSCULAR HEMOGLOBIN 27.2 PG (27.0-31.0); MEAN CORPUSCULAR VOLUME 82.4 FL (78-98); MEAN PLATELET VOLUME 7.4 FL (7.4-10.4); MONOCYTES # (AUTO) 0.9 X10'3 (0-0.9); MONOCYTES % (AUTO) 10.9 % (2-12); NEUTROPHILS # (AUTO) 5.7 X10'3 (1.8-7.7); NEUTROPHILS % (AUTO) 66.1 % (42-75); PLATELET COUNT 234 X10'3 (140-440); RED BLOOD COUNT 4.59 X10'6 (4.70-6.10); RED CELL DISTRIBUTION WIDTH 14.4 % (11.5-14.5); WHITE BLOOD COUNT 8.6 X10'3 (4.5-11.0)
[2025-02-16 07:39] LABS: ALANINE AMINOTRANSFERASE 18 U/L (12-78); ALBUMIN 2.4 G/DL (3.4-5.0); ALBUMIN/GLOBULIN RATIO 0.7 (1.1-1.5); ALKALINE PHOSPHATASE 98 IU/L (46-116); ANION GAP 7 (8-16); ASPARTATE AMINO TRANSFERASE 14 U/L (10-37); BILIRUBIN,TOTAL 0.5 MG/DL (0.1-1.0); BLOOD UREA NITROGEN 16 MG/DL (7-18); BUN/CREATININE RATIO 14.5 (10.0-20.0); CALCIUM 7.9 MG/DL (8.5-10.1); CHLORIDE 105 MMOL/L (99-107); CHOL/HDL RATIO 3.9 (0.00-4.99); CHOLESTEROL 109 MG/DL (0-200); GLUCOSE 77 MG/DL (70-104); HDL CHOLESTEROL 28 MG/DL (35-60); LDL CHOLESTEROL 65 MG/DL (50-100); MAGNESIUM 2.1 MG/DL (1.5-2.4); POTASSIUM 3.8 MMOL/L (3.5-5.1); SODIUM 138 MMOL/L (135-145); TOTAL CARBON DIOXIDE 26.3 MMOL/L (24-32); TRIGLYCERIDES 106 MG/DL (20-135); eCRCL 69 ML/MIN; eGFR 67 ML/MIN
[2025-02-16] MEDS: docusate sod 100mg capsule PO SCH (08:00)
[2025-02-16] MEDS: heparin, porcine 5000 units/ml vial SQ SCH (08:00)
[2025-02-16] MEDS: K and/or MAG REPLACEMENT MC SCH (08:00)
[2025-02-16 08:25] LABS: HEMOGLOBIN A1C 7.6 % (4.5-6.2)
[2025-02-16] MEDS ORDERED: hyDRALAzine 10mg tablet PO ONE (08:40)
[2025-02-16] MEDS ORDERED: NOVLG SQ (08:47)
[2025-02-16] MEDS ORDERED: INSU100I29 SQ (08:47)
[2025-02-16] MEDS ORDERED: EXEN2AUT SQ (08:47)
[2025-02-16 10:00] VITALS: BP 136/72; PULSE 74; RESP 16; TEMP 97.4; O2SAT 96
[2025-02-16] MEDS: vancomycin/NS 1 GM ADD-VANTAGE 250 ML IV SCH (10:14)
[2025-02-16] MEDS ORDERED: dextrose 50%-water 50ml dispensing syringe IV PRN ×2 (11:00)
[2025-02-16] MEDS ORDERED: DEXTROSE 15 GM of carb/4 tabs (each vial/BOTTLE has 4 tablets) PO PRN ×2 (11:00)
[2025-02-16] MEDS ORDERED: glucagon, human recombinant 1mg kit SUBCUT PRN (11:00)
[2025-02-16] MEDS: amLODIPine 5mg tablet PO ONE (11:28)
--- NOTE | 2025-02-16 12:17 | PROGRESS NOTE ---
Daily Progress Note Providers to CC ~ Antibiotic Timeout Antibiotic Ordered?: Yes Subjective No acute events overnight. Patient examined at bedside. No new complaints, not in acute distress. Patient denies chest pain, sob, palpitations, abdominal pain, n/v/d. I&D of left breast abscess done in ED. Continued on vanco/ceftriaxone. Consulted ID Dr. Garcia who will follow. Hypertensive, antihypertensive regimen started. Labs notable for resolving ISAAC on IVF. Objective Vital Signs Date Time Temp Pulse Resp B/P (MAP) Pulse Ox O2 Delivery O2 Flow Rate FiO2 02/16/25 11:28 74 02/16/25 10:00 97.4 16 136/72 (93) 96 Room Air 02/15/25 17:55 0 Result Diagram: 02/16/2565202/16/25652 Physical Exam General: Generalized weakness, A&Ox 3, NAD HEENT: Normocephalic, PERRLA Neck: Supple, trachea midline, no JVD Chest: Clear to auscultation bilaterally Cardiovascular: RRR, S1&S2 GI: Soft and nontender Extremities: No cyanosis/clubbing/or edema BELT SPLICER: CN II-XII intact, no focal deficits Musculoskeletal: No paraspinal muscle tenderness, no muscle spasm Skin: s/p I&D left breast abscess Problem\Assessment\Plan # Left breast abscess -Failed outpatient antibiotic therapy-Augmentin, Bactrim DS. -Ultrasound of the left breast from 02/12/2025 shows area of swelling in the retro areolar region of the left breast with a complex fluid collection measuring 3.9 X 2.8 X 2.5 cm. -I&D done in ED, on vanco/ceftriaxone -02/16: consulted ID Dr. Garcia who will follow # Prerenal ISAAC 2/2 vasomotor nephropathy/ dehydration # Dehydration- POA -02/16: resolving with IVF # IDDM -A1c 7.6, hyper/hypoglcemic protocol # HTN -losartan, amlodipine; pending med rec # CAD -aspirin, statin CODE STATUS: Full code DVT/VTE prophylaxis: Heparin Date of Service: February 16, 2025 Billing Provider: CHANEL FERNANDES Common Visit Codes: [id number] INP/OBS CARE(HIGH) CHANEL FERNANDES February 16, 2025 12:17
[2025-02-16] MEDS: INSULIN LISPRO 100 UNIT/ML INSULN.PEN MULTI-DOSE SQ SCH (12:34)
[2025-02-16] MEDS: aspirin 81mg, enteric-coated 1 TAB TABLET.DR PO ONE (14:19)
[2025-02-16] MEDS ORDERED: hyDRALAzine 10mg tablet PO SCH (16:00)
[2025-02-16 18:00] VITALS: BP 134/68; PULSE 72; RESP 16; TEMP 97.8; O2SAT 96
[2025-02-16] MEDS: atorvastatin 20mg tablet PO SCH (19:38)
[2025-02-16] MEDS ORDERED: vancomycin/NS 1 GM ADD-VANTAGE 250 ML X 1 DOSE IV SCH (20:00)
[2025-02-16 22:00] VITALS: BP 150/82; PULSE 68; RESP 18; TEMP 98.7; O2SAT 96
--- NOTE | 2025-02-16 23:44 | CONSULTATION REPORT ---
Consult Consult Consultation Reason for Consult: Breast abscess Consulting Provider: David Salazar Antibiotic Days: Vanc 1, Rocephin 1 Lines: PIV Micro: 02/15 Blood- ngtd HPI: Patient is a 64 year old male with DM (A1c 7.6) who presented to [facility] on 02/15 with L breast pain. He had been seen in the ER a few days prior for the same issue and been diagnosed with an abscess. He underwent I&D at that time that did not reveal an organism though he had been taking Augmentin at that time. Bactrim was subsequently added. This time he was admitted for IV Vanc and Rocephin and ID is asked to consult. On today's exam, he is spoken to in a mix of Arabic and Nepalese and his daughter was at the bedside as well. They are unsure how this could have happened; he denies any trauma nor any ingrown hairs. He does report that he has been having chills at home. He denies any antibiotic allergies. Past Medical/Surgical History: Hypertension, diabetes mellitus, coronary artery disease status post pci Current Medications Medications (Trade) Dose Ordered Sig/Manpreet Route PRN Reason Start Time Stop Time Status Last Admin Dose Admin Diphtheria/ Pertussis/Tetanus Vacc (Boostrix vaccine syringe) 0.5 ml ONCE ONCE IMVAC 02/15/25 20:05 02/15/25 20:06 DC 02/15/25 21:51 0.5 ML Sodium Chloride (sodium chloride 1000ml IV soln) 1,000 ml ONCE ONCE IVB 02/15/25 20:05 02/15/25 20:06 DC 02/15/25 20:44 1,000 ML Vancomycin HCl 250 ml @ 166 mls/hr ONCE ONCE IV 02/15/25 20:30 02/15/25 22:00 DC 02/15/25 20:43 166 MLS/HR Heparin Sodium (Porcine) (heparin, porcine 5000 unit/ ml 1ml vial) 5,000 unit Q12H SQ 02/16/25 08:00 02/16/25 19:38 5,000 UNIT Docusate Sodium (Colace capsule) 100 mg BID PO 02/16/25 08:00 02/16/25 19:38 100 MG Sodium Chloride 1,000 ml @ 100 mls/hr Q10H IV 02/15/25 20:50 02/16/25 14:21 100 MLS/HR Morphine Sulfate (morphine inj.) 4 mg ONCE ONCE IV 02/15/25 21:30 02/15/25 21:31 DC 02/15/25 21:44 4 MG Vancomycin HCl (Vancomycin Pharmacy To Dose) 1 unit DAILY IV 02/15/25 22:15 02/16/25 08:18 1 UNIT Ceftriaxone Sodium 50 ml @ 100 mls/hr DAILY IV 02/15/25 22:15 02/16/25 19:37 100 MLS/HR Vancomycin HCl 250 ml @ 166 mls/hr ONCE ONCE IV 02/15/25 23:05 02/16/25 00:35 DC 02/16/25 00:11 166 MLS/HR Losartan Potassium (Cozaar tablet) 50 mg ONCE ONCE PO 02/16/25 01:55 02/16/25 02:36 DC 02/16/25 02:50 50 MG Vancomycin HCl 250 ml @ 166 mls/hr Q12H@0800,2000 IV 02/16/25 08:00 02/16/25 20:46 166 MLS/HR Amlodipine Besylate (Norvasc tablet) 10 mg ONCE ONCE PO 02/16/25 08:40 02/16/25 08:56 DC 02/16/25 11:28 10 MG Insulin Human Lispro (Humalog Kwikpen U-100 (100 Unit/ ml) 3ml) SUPPLEMENTAL INSULIN To ... ACHS SQ 02/16/25 12:00 02/16/25 20:55 2 UNIT Aspirin (Ecotrin tablet) 1 tab ONCE ONCE PO 02/16/25 12:15 02/16/25 12:39 DC 02/16/25 14:19 1 TAB Atorvastatin Calcium (Lipitor tablet) 40 mg HS PO 02/16/25 21:00 02/16/25 19:38 40 MG Social History: His daughter works here Family History: Noncontributory ROS: As in HPI, otherwise negative Objective: Vitals: Afebrile, 74, 16, 136/72, 96% on RA General: A&Ox3, NAD HEENT: NC/AT, normal conjunctiva, no oral lesions CV: Regular Resp: Clear anteriorly BREAST: L lower breast with a half dollar sized patch of well demarcated erythema and packing in place around 7-8 o clock Abd: Obese, soft, nontender, nondistended Lines: PIV ok Laboratory Tests 02/16/25 06:53 02/15 US Edematous changes in the left breast soft tissues with focal fluid collections and debris. No obvious mass identified. Assessment: // L breast abscess with improving surrounding mastitis. He underwent I&D a few days ago that did not reveal an organism. Since this was on Augmentin, microbiologic ddx includes MSSA, Strep // DM, A1c 7.6 // Antibiotic Allergies: none known // MRSA Screen: pending Plan: - Continue Paris Agarwal for now - Follow up new cultures taken and deescalate as appropriate - Ultimately, will plan to DC on a long course of pills - Wound care - Monitor WBC count, Cr, temp - Physical therapy - Thank you for the consult, will continue to follow RAYSHAWN MENDEZ DO February 16, 2025 23:44
[2025-02-17 06:00] VITALS: BP 130/75; PULSE 68; RESP 18; TEMP 98.2; O2SAT 96
[2025-02-17 06:24] LABS: BASOPHILS % (AUTO) 0.5 % (0-1); EOSINOPHILS # (AUTO) 0.2 X10'3 (0-0.9); EOSINOPHILS % (AUTO) 3.5 % (0-6); HEMATOCRIT 37.9 % (42.0-52.0); HEMOGLOBIN 12.6 g/dl (14.0-17.9); LYMPHOCYTES # (AUTO) 1.8 X10'3 (1.1-4.8); LYMPHOCYTES % (AUTO) 25.5 % (21-51); MEAN CORPUSCULAR HEMOGLOBIN 27.3 PG (27.0-31.0); MEAN CORPUSCULAR HGB CONC 33.2 g/dL (33.0-36.5); MEAN CORPUSCULAR VOLUME 82.4 FL (78-98); MEAN PLATELET VOLUME 7.8 FL (7.4-10.4); MONOCYTES # (AUTO) 0.7 X10'3 (0-0.9); NEUTROPHILS # (AUTO) 4.2 X10'3 (1.8-7.7); NEUTROPHILS % (AUTO) 60.5 % (42-75); PLATELET COUNT 257 X10'3 (140-440); WHITE BLOOD COUNT 6.9 X10'3 (4.5-11.0)
[2025-02-17 06:27] LABS: ALANINE AMINOTRANSFERASE 19 U/L (12-78); ALBUMIN 2.5 G/DL (3.4-5.0); ALBUMIN/GLOBULIN RATIO 0.7 (1.1-1.5); ALKALINE PHOSPHATASE 109 IU/L (46-116); ANION GAP 7 (8-16); ASPARTATE AMINO TRANSFERASE 10 U/L (10-37); BILIRUBIN,TOTAL 0.4 MG/DL (0.1-1.0); BLOOD UREA NITROGEN 12 MG/DL (7-18); BUN/CREATININE RATIO 11.8 (10.0-20.0); CALCIUM 8.1 MG/DL (8.5-10.1); CHLORIDE 104 MMOL/L (99-107); CREATININE 1.02 MG/DL (0.60-1.10); GLUCOSE 156 MG/DL (70-104); POTASSIUM 4.3 MMOL/L (3.5-5.1); SODIUM 139 MMOL/L (135-145); TOTAL CARBON DIOXIDE 28.1 MMOL/L (24-32); TOTAL PROTEIN 6.1 G/DL (6.4-8.2); eCRCL 75 ML/MIN; eGFR 73 ML/MIN
[2025-02-17] MEDS: VANCOMYCIN LEVEL IV ONE (07:43)
[2025-02-17] MEDS: aspirin 81mg, enteric-coated 1 TAB TABLET.DR PO SCH (08:40)
[2025-02-17] MEDS: amLODIPine 5mg tablet PO SCH (08:41)
[2025-02-17] MEDS: losartan 50mg tablet PO SCH (08:41)
[2025-02-17 10:00] VITALS: BP 147/81; PULSE 79; RESP 18; TEMP 98.3; O2SAT 96
--- NOTE | 2025-02-17 14:44 | PROGRESS NOTE ---
Daily Progress Note Providers to CC ~ Antibiotic Timeout Antibiotic Ordered?: Yes Subjective No acute events overnight. Patient examined at bedside. No new complaints, not in acute distress. Patient denies chest pain, sob, palpitations, abdominal pain, n/v/d. I&D of left breast abscess done in ED. ID Dr. Garcia recommended continuation of vanco/ceftriaxone while awaiting culture result. Vss, labs unremarkable. 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 -Ultrasound of the left breast from 02/12/2025 shows area of swelling in the retro areolar region of the left breast with a complex fluid collection measuring 3.9 X 2.8 X 2.5 cm. -I&D done in ED, on vanco/ceftriaxone -02/16: consulted ID Dr. Garcia who will follow -02/17: ID recommendation to continue vanco/ceftriaxone while awaiting culture result. 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 February 17, 2025 14:44
[2025-02-17 18:00] VITALS: BP 146/80; PULSE 75; RESP 16; TEMP 98.5; O2SAT 95
[2025-02-17] MEDS: VANCOmycin 1250MG/NS 250ml Bag 250 ML IV SCH (19:20)
[2025-02-17] MEDS: insulin glargine (Lantus) pen - multi-dose SQ SCH (21:19)
--- NOTE | 2025-02-17 21:36 | PROGRESS NOTE ---
Progress Note ID Providers to CC ~ Progress Note Progress Note: Antibiotic Days: Vanc 2, Rocephin 2 Lines: PIV Micro: 02/15 Blood- ngtd 02/17 Wound- ngtd Subjective: Patient was seen just before showering and his wound had been wrapped in plastic. He says, however, that it feels much better than yesterday. He no longer has pain Objective: Vitals: Afebrile, 68, 18, 130/75, 96% on RA General: Alert, NAD CV: Regular Resp: Clear anteriorly BREAST: L lower breast covered in gauze and op site Abd: Obese, soft, nontender, nondistended Lines: PIV ok Laboratory Tests 02/17/25 04:55 Assessment: // L breast abscess with improving surrounding mastitis. He underwent I&D a few days ago that did not reveal an organism. Since this was on Augmentin, microbiologic ddx includes MSSA, Strep // DM, A1c 7.6 // Antibiotic Allergies: none known // MRSA Screen: pending Plan: - Continue Vanco, Rocephin for now - Follow up new cultures taken (this AM) and deescalate as appropriate - Ultimately, will plan to DC on a long course of pills - Wound care - Monitor WBC count, Cr, temp - Physical therapy - Will continue to follow RAYSHAWN MENDEZ DO February 17, 2025 21:36
[2025-02-17 22:00] VITALS: BP 130/72; PULSE 70; RESP 17; TEMP 98.8; O2SAT 96
[2025-02-18 05:00] VITALS: BP 158/84; PULSE 66; RESP 19; TEMP 97.5; O2SAT 98
[2025-02-18 06:15] LABS: BASOPHILS % (AUTO) 0.6 % (0-1); EOSINOPHILS # (AUTO) 0.3 X10'3 (0-0.9); EOSINOPHILS % (AUTO) 3.9 % (0-6); HEMATOCRIT 38.2 % (42.0-52.0); HEMOGLOBIN 12.9 g/dl (14.0-17.9); LYMPHOCYTES # (AUTO) 1.8 X10'3 (1.1-4.8); LYMPHOCYTES % (AUTO) 25.6 % (21-51); MEAN CORPUSCULAR HEMOGLOBIN 27.3 PG (27.0-31.0); MEAN CORPUSCULAR HGB CONC 33.6 g/dL (33.0-36.5); MEAN CORPUSCULAR VOLUME 81.2 FL (78-98); MEAN PLATELET VOLUME 7.5 FL (7.4-10.4); MONOCYTES # (AUTO) 0.8 X10'3 (0-0.9); MONOCYTES % (AUTO) 11.7 % (2-12); NEUTROPHILS % (AUTO) 58.2 % (42-75); PLATELET COUNT 282 X10'3 (140-440); RED BLOOD COUNT 4.71 X10'6 (4.70-6.10); RED CELL DISTRIBUTION WIDTH 14.2 % (11.5-14.5); WHITE BLOOD COUNT 6.8 X10'3 (4.5-11.0)
[2025-02-18 06:19] LABS: ALANINE AMINOTRANSFERASE 19 U/L (12-78); ALBUMIN 2.6 G/DL (3.4-5.0); ALBUMIN/GLOBULIN RATIO 0.7 (1.1-1.5); ALKALINE PHOSPHATASE 99 IU/L (46-116); ANION GAP 4 (8-16); ASPARTATE AMINO TRANSFERASE 4 U/L (10-37); BILIRUBIN,TOTAL 0.4 MG/DL (0.1-1.0); BLOOD UREA NITROGEN 11 MG/DL (7-18); BUN/CREATININE RATIO 11.6 (10.0-20.0); CALCIUM 8.5 MG/DL (8.5-10.1); CHLORIDE 105 MMOL/L (99-107); CREATININE 0.95 MG/DL (0.60-1.10); GLUCOSE 189 MG/DL (70-104); MAGNESIUM 2.1 MG/DL (1.5-2.4); POTASSIUM 4.3 MMOL/L (3.5-5.1); SODIUM 139 MMOL/L (135-145); TOTAL CARBON DIOXIDE 30.2 MMOL/L (24-32); TOTAL PROTEIN 6.3 G/DL (6.4-8.2); eCRCL 80 ML/MIN; eGFR 80 ML/MIN
[2025-02-18] MEDS: losartan 50mg tablet PO SCH (08:00)
[2025-02-18] MEDS ORDERED: LINE600T12 PO (08:24)
[2025-02-18 10:00] VITALS: BP 155/75; PULSE 75; RESP 16; TEMP 98; O2SAT 96
--- NOTE | 2025-02-18 11:14 | DISCHARGE SUMMARY ---
Discharge Summary Providers to CC ~ Discharge Summary Admission Diagnosis: Left breast abscess Hospital Course DATE OF ADMISSION: 02/15/25 DATE OF DISCHARGE: 02/18/25 Discharge Diagnosis\\Comment: Abscess, left breast Mastitis, left breast Prerenal ISAAC 2/2 vasomotor nephropathy/ dehydration Dehydration- POA IDDM HTN CAD Operations\\Procedures: I&D, left breast abscess Consultants: Infectious Disease Katya Henley Complications: None Condition on DC: Stable New Medications: Linezolid (Zyvox) 600 Mg Tablet 600 MG PO Q12H for 14 Days, #28 TAB Continued Medications: Allopurinol (Allopurinol) 100 Mg Tablet 1 TAB PO DAILY for 30 Days, #30 TAB 0 Refills Aspirin (Aspirin EC) 81 Mg Tablet.dr 1 TAB PO DAILY Atorvastatin Calcium (Atorvastatin Calcium) 40 Mg Tablet 1 TAB PO DAILY Carvedilol (Carvedilol) 6.25 Mg Tablet 1 TAB PO BID Exenatide Microspheres (Bydureon Bcise) 2 Mg/0.85 Ml Auto.injct 2 MG SQ ONCE Insulin Aspart (Novolog) 100 Unit/Ml (3 Ml) Insuln.pen SQ Insulin Degludec (Tresiba Flextouch U-100) 100 Unit/Ml (3 Ml) Insuln.pen 75 UNITS SQ QAM Losartan* (Cozaar*) 50 Mg Tablet 1 TAB PO BID for 30 Days, #30 TAB Nitroglycerin SL* (Nitrostat SL*) 0.4 Mg Tablet 1 TAB SL Q5MIN PRN for Chest pain Q5min PRNx3-call MD, #25 TAB Pantoprazole Sodium (Pantoprazole Sodium) 40 Mg Tablet. 1 TAB PO DAILY Discharge Summary: History of Present Illness From H&P: "History taken by using translation services. 64 years old male with past medical history of diabetes, hypertension, coronary artery disease presented to the ED with chief complaint of worsening left breast pain, swelling and erythema. He reports that he 1st noticed the swelling, pain and redness in his left breast 10 days ago for which he has presented to the ER twice and has tried 2 antibiotics-Augmentin and Bactrim DS (3rd day today) without any improvement. He states that the pains swelling and erythema has been progressively getting worse day by day. The patient also endorses associated fever and chills with the last 10 days. He rates the pain in his left breast to be six on 10 without palpation and states that if he touches the breast it incr eases to 10 on a scale of 10. Patient denied any other concerns or complaints at the moment. He denies any headache, nausea, vomiting, shortness of breaths, palpitations, abdominal pain." Hospital Course Soft tissue ultrasound was remarkable for edematous changes in the left breast with focal fluid collections in the brace without findings of mass. Patient underwent I&D of left breast abscess in ED and was started on empirical antibiotics and received wound care. Unfortunately, fluid culture was not collected at the time of I&D but collected on a following day. Case was consulted with ID Dr. Garcia who recommended continuation of vancomycin and Zosyn. Patient is cleared for discharged from ID standpoint with 2-week course of Zyvox upon discharge. Patient did not experience further complications throughout the entire hospital stay and made a good recovery. Patient was seen and examined on the day of discharge. All labs, diagnostic workups, discharge plan discussed with patient in details during visit before discharge. All questions and concerns answered to the best of my professional knowledge. Patient is to be discharged with HH and to follow-up with PCP and ID Dr. Garcia within 2 weeks. 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
[2025-02-18 11:32] VITALS: BP_SYST 156; PULSE 75
[2025-02-18] MEDS: HYDROcodone/acetaminophen 5mg/325mg tablet PO PRN (11:32)
[2025-02-18] MEDS: losartan 50mg tablet PO ONE (11:32)
[2025-02-19] MEDS ORDERED: VANCOMYCIN LEVEL IV ONE (07:30)
[2025-02-19] MEDS ORDERED: LINE600T14 PO ×2 (12:13→12:18)
== END 2025-02-18 13:55 | disposition home health service (06) | DRG 385 ==
LOC: ER 17:52 → ED HOLD 20:51 → ORTHO 4S 02-16 01:22
PROVIDERS: ADMIT Internal Medicine Sleep Medicine; ATTEND Nurse Practitioner Family
PROC: 0H9U3ZZ Drainage of Left Breast, Percutaneous Approach (ICD-10-PCS; principal; 2025-02-15)
DX: N61.1 Abscess of the breast and nipple (principal); N17.0 Acute kidney failure with tubular necrosis; E86.0 Dehydration; E11.9 Type 2 diabetes mellitus without complications; I10 Essential (primary) hypertension; I25.10 Atherosclerotic heart disease of native coronary artery without angina pectoris; M10.9 Gout, unspecified; E78.00 Pure hypercholesterolemia, unspecified; I25.2 Old myocardial infarction; Z79.4 Long term (current) use of insulin; Z95.5 Presence of coronary angioplasty implant and graft
CPT/HCPCS: 10061; 36415; 76770; 76881; 80048; 80053; 80061; 80202; 82948; 83036; 83605; 83735; 84145; 85025; 87040; 87070; 87075; 87081; 90715; 96374; 99285; A6253; A6258; A6266; A6402; A6407; A6449; G0378; J0696; J1644; J1815; J2270; J3370; J7030